=== PATIENT | female | born 1970 | race Caucasian/White ===

== ENCOUNTER 2019-02-16 22:53 | Emergency (ER) | payer OTHER ==
[~2019-02-16] VITALS: Ht 162.6 cm; Wt 68.0 kg
[~2019-02-16 22:53] MED LIST: CEPHALEXIN 500500 M3 PO; DESYREL50 MG; HYDROCODONE-AP1 EAC6 PO; HYDROXYZINE PAM50 MG; MEDROLDOSEPACK PO; PRISTIQ100 MG; ROBAXIN 750 MG750 M1 PO; TOPROL XL50 MG; TRAZODONE 150150 M1 PO; VENLAFAXIN75 MG/1 T2 PO; XANAX XR1 MG
[2019-02-16] MEDS ORDERED: AUGMENTIN 875-1 EACH PO (23:39)
[2019-02-17 00:15] VITALS: BP 110/62
== END 2019-02-17 00:17 | disposition home or self-care (01) ==
LOC: M.ERS 22:53
DX: S01.511A Laceration without foreign body of lip, initial encounter (principal); E78.00 Pure hypercholesterolemia, unspecified; K21.9 Gastro-esophageal reflux disease without esophagitis; F41.9 Anxiety disorder, unspecified; Z90.710 Acquired absence of both cervix and uterus; X58.XXXA Exposure to other specified factors, initial encounter; Y93.89 Activity, other specified; Y92.89 Other specified places as the place of occurrence of the external cause; Y99.8 Other external cause status